=== PATIENT | male | born 1960 | race African-American/Black ===

== ENCOUNTER 2024-12-26 08:32 | Emergency (ER) | payer BC ==
[2024-12-26 08:37] VITALS: BP 161/92; PULSE 86; RESP 20; TEMP 98.1; BMI 26.2
== END 2024-12-26 09:25 | disposition home or self-care (01) ==
LOC: JERFT 08:32
DX: Z48.01 Encounter for change or removal of surgical wound dressing (principal)
CPT/HCPCS: 99281-25